=== PATIENT | female | born 1990 | race American Indian/Alaskan Native ===

== ENCOUNTER 2018-07-13 15:28 | Emergency (ER) | payer SELFPAY ==
[2018-07-13 15:35] VITALS: BP 126/54
[2018-07-13 16:05] LABS: Basophils % (Auto) 0.3 % (0.0-1.8); Eosinophils # (Auto) 0.1 K/mm3 (0.0-0.4); Eosinophils % (Auto) 0.7 % (0.0-4.3); Hematocrit 32.8 % (30.3-42.9); Hemoglobin 10.7 gm/dl (10.1-14.3); Lymphocytes % (Auto) 24.3 % (13.4-35.0); Mean Corpuscular HGB Conc 33 % (30-34); Mean Corpuscular Volume 85 fl (79-97); Monocytes # (Auto) 0.8 K/mm3 (0.0-0.8); Platelet Count 219 K/mm3 (140-440); Red Blood Count 3.85 M/mm3 (3.65-5.03); Red Cell Distribution Width 15.1 % (13.2-15.2)
[2018-07-13 16:20] LABS: Bilirubin,Urine NEG (Negative); Blood,Urine NEG (Negative); Color,Urine Yellow (Yellow); Mucus,Urine 2+ /HPF; Protein,Urine <15 mg/dL mg/dL (Negative)
[2018-07-13 16:28] LABS: Alanine Aminotransferase 7 units/L (7-56); Albumin 4.1 g/dL (3.9-5); BUN/Creatinine Ratio 27; Blood Urea Nitrogen 8 mg/dL (7-17); Calcium 9.1 mg/dL (8.4-10.2); Hemolysis Index 11
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
--- NOTE | 2018-07-13 18:18 | Ultrasound Report ---
FINAL REPORT EXAM: US OB TRANSVAGINAL HISTORY: pelvic pain/vaginal bleeding TECHNIQUE: Ultrasound obstetrical transvaginal PRIORS: None. FINDINGS: There is a gestational sac within the uterus There is a single live intrauterine gestation. cardiac activity present with heart rate of 168 beats per minute. Cervical length is within normal limits 4.2 centimeters biometric measurements were obtained Placenta is posterior. There is question of circumvallate placenta for which continued followup recom mended Biparietal diameter 17 weeks 5 days Head circumference 17 weeks 2 days Abdominal circumference 17 weeks 4 days Femur length 18 weeks 0 days Estimated weight today is 207 grams. Estimated age today is 17 weeks 5 days with estimate d date of delivery December 16, 2018 IMPRESSION: Single live intrauterine gestation estimated at 17 weeks 5 days Possible circumvallate placenta. Continued followup recommended
--- NOTE | 2018-07-13 18:20 | Ultrasound Report ---
FINAL REPORT EXAM: US OB >= 14 WEEKS FETUS HISTORY: pelvic pain/vaginal bleeding TECHNIQUE: Ultrasound obstetrical transabdominal PRIORS: None. FINDINGS: There is a gestational sac within the uterus There is a single live intrauterine gestation. cardiac activity present with heart rate of 168 beats per minute. Cervical length is within normal limits 4.2 centimeters biometric measurements were obtained Placenta is posterior. There is question of circumvallate placenta for which continued followup recom mended Biparietal diameter 17 weeks 5 days Head circumference 17 weeks 2 days Abdominal circumference 17 weeks 4 days Femur length 18 weeks 0 days Estimated weight today is 207 grams. Estimated age today is 17 weeks 5 days with estimate d date of delivery December 16, 2018 IMPRESSION: Single live intrauterine gestation estimated at 17 weeks 5 days Possible circumvallate placenta. Continued followup recommended
== END 2018-07-13 18:48 | disposition home or self-care (01) ==
LOC: ED 15:28
DX: O20.0 Threatened abortion (principal); F17.200 Nicotine dependence, unspecified, uncomplicated; Z86.2 Personal history of diseases of the blood and blood-forming organs and certain disorders involving the immune mechanism; Z3A.17 17 weeks gestation of pregnancy
CPT/HCPCS: 36415; 76805; 76817; 80053; 81001; 84702; 85025; 86900; 86901

== ENCOUNTER 2018-11-23 21:59 | Outpatient (CLI) | payer MEDICAID, OTHER ==
[2018-11-24 01:02] VITALS: BP 118/55
[2018-11-24] MEDS ORDERED: VISTARIL PO ONE (01:20)
== END 2018-11-24 01:30 | disposition home or self-care (01) ==
LOC: TRG 21:59
PROVIDERS: ATTEND Obstetrics & Gynecology
DX: O26.893 Other specified pregnancy related conditions, third trimester (principal); R10.2 Pelvic and perineal pain; Z3A.36 36 weeks gestation of pregnancy
CPT/HCPCS: 59025; Q0177

== ENCOUNTER 2018-12-05 15:35 | Inpatient (IN) | payer MEDICAID ==
--- NOTE | 2018-12-05 19:26 | History and Physical Report ---
History of Present Illness Date of examination: 12/05/18 Date of admission: 12/05/18 18:25 Chief complaint: SROM light meconium fluid @ 1714 History of present illness: Pt is a 28yo BF EDC 12/21/18; EGA 37 5/7 weeks presents to L&D complaining of leaking fluid since 1714 followed by irregular contractions. She received late care at [facility] since 33 weeks and has been non- compliant with [facility]. records are available and GBS is Negative. Past History Past Medical History: no pertinent history Past Surgical History: no surgical history Social history: no significant social history, single - Obstetrical History Expected Date of Delivery: 12/21/18 Actual Gestation: 37 Week(s) 5 Day(s) : 6 Medications and Allergies Allergies Allergy/AdvReac Type Severity Reaction Status Date / Time latex Allergy Hives Verified 12/05/18 16:50 Home Medications Medication Instructions Recorded Confirmed Last Taken Type Acetaminophen 500 mg PO Q8H PRN #20 tablet 07/13/18 12/05/18 11/23/18 20:00 Rx 21/Iron Fu/Folic Acid 1 each PO DAILY #30 tablet 07/13/18 12/05/18 11/23/18 Rx [ Complete Caplet] Acetaminophen/Diphenhydramine 1 tab PO QPM PRN 11/24/18 12/05/18 11/23/18 20:00 History [Tylenol Pm Ex-Strength Caplet] Review of Systems All systems: negative - Vital Signs Vital signs: Vital Signs Pulse BP 115 H 120/64 12/05/18 15:55 12/05/18 15:55 Temp Pulse Resp BP Pulse Ox 99.3 F 91 H 18 121/69 12/05/18 16:54 12/05/18 18:42 12/05/18 16:54 12/05/18 18:42 - Physical Exam Breasts: Positive: deferred Cardiovascular: Regular rate Lungs: Positive: Clear to auscultation Abdomen: Positive: normal appearance, soft Vagina: Positive: normal moisture Uterus: Positive: enlarged Extremities: Positive: normal - Obstetrical FHR: category 1 Uterine Contraction Monitor Mode: External Cervical Dilatation: 1 (per nurse) Cervical Effacement Percentage: 50 (per nurse) station: -2 Uterine Contraction Pattern: Irregular Uterine Tone Measurement Phase: Contraction Uterine Contraction Intensity: Mild Results Result Diagrams: 12/05/18 19:00 All other labs normal. Assessment and Plan - Patient Problems (1) 37 weeks gestation of Onset Date: 12/05/18 Current Visit: Yes Status: Acute Plan to address problem: A: IUP @ 37 5/7 weeks PPROM Late care P: Admit to L&D for expectant vaginal delivery (2) premature rupture of membranes (PPROM) with onset of labor after 24 hours of rupture in third trimester, antepartum Onset Date: 12/05/18 Current Visit: Yes Status: Acute
[2018-12-05] MEDS ORDERED: BRETHINE IVP PRN (19:34)
[2018-12-05] MEDS ORDERED: SUBLIMAZE IV PRN (19:34)
[2018-12-05] MEDS ORDERED: BRETHINE SUB-Q PRN (19:34)
[2018-12-05] MEDS ORDERED: ZOFRAN IV PRN (19:34)
[2018-12-05] MEDS ORDERED: MINERAL OIL PO PRN (19:34)
[2018-12-05] MEDS ORDERED: XYLOCAINE 2% INFILTRATI ONE (19:34)
[2018-12-05 19:45] LABS: Hematocrit 25.1 % (30.3-42.9); Hemoglobin 8.1 gm/dl (10.1-14.3); Mean Corpuscular HGB Conc 32 % (30-34); Mean Corpuscular Volume 73 fl (79-97); Platelet Count 220 K/mm3 (140-440); Red Blood Count 3.43 M/mm3 (3.65-5.03); Red Cell Distribution Width 17.4 % (13.2-15.2)
[2018-12-05] MEDS ORDERED: PITOCin/NS 30 UNIT/500ML 30 UNITS/500 ML BAG IV SCH ×2 (20:00)
[2018-12-05] MEDS ORDERED: PITOCin/NS 20 UNIT/1000ML DRIP 20 UNITS/1,000 ML BAG IV SCH (20:00)
[2018-12-05] MEDS: STADOL IV PRN (23:23)
[2018-12-06] MEDS: STADOL IV PRN ×3 (02:03→17:45)
[2018-12-06] MEDS: LACTATED RINGERS 1,000 ML IV SCH (02:34)
[2018-12-06] MEDS ORDERED: CERVIDIL VG ONE (07:48)
--- NOTE | 2018-12-06 11:52 | Progress Note ---
Assessment and Plan - Patient Problems (1) 37 weeks gestation of Onset Date: 12/05/18 Current Visit: Yes Status: Acute Plan to address problem: A: IUP @ 37 6/7 weeks PPROM Late care P: Continue cervidil/pitocin augmentation of labor Expectant vaginal delivery (2) premature rupture of membranes (PPROM) with onset of labor after 24 hours of rupture in third trimester, antepartum Onset Date: 12/05/18 Current Visit: Yes Status: Acute Subjective - Subjective Date of service: 12/06/18 Principal diagnosis: IUP @ 37 6/7 weeks Interval history: Pt is a 28yo BF EDC 12/21/18; EGA 37 6/7 weeks who presented to L&D complaining of leaking fluid since 171412/05/18 followed by irregular contractions. She received late care at [facility] since 33 weeks and has been non-compliant with [facility]. records are available and GBS is Negative. She received pitocin yesterday without much cervical change, and so received cervidil today. +FM. No bleeding. Patient reports: movement normal, contractions, no new complaints, no loss of fluid, no vaginal bleeding Objective - Vital Signs Vital Signs: Vital Signs - 12hr 12/05/18 12/06/18 12/06/18 23:56 00:23 00:27 Temperature Pulse Rate 104 H 90 Respiratory 18 Rate Blood Pressure 124/61 121/56 Blood Pressure [Left] O2 Sat by Pulse Oximetry 12/06/18 12/06/18 12/06/18 00:58 01:27 01:32 Temperature Pulse Rate 91 H 92 H 98 H Respiratory Rate Blood Pressure 117/57 Blood Pressure [Left] O2 Sat by Pulse 97 97 Oximetry 12/06/18 12/06/18 12/06/18 01:37 01:42 01:47 Temperature Pulse Rate 98 H 104 H 99 H Respiratory Rate Blood Pressure Blood Pressure [Left] O2 Sat by Pulse 97 97 97 Oximetry 12/06/18 12/06/18 12/06/18 01:52 01:57 02:02 Temperature Pulse Rate 105 H 107 H 99 H Respiratory Rate Blood Pressure 116/54 Blood Pressure [Left] O2 Sat by Pulse 97 99 98 Oximetry 12/06/18 12/06/18 12/06/18 02:03 02:07 02:12 Temperature Pulse Rate 94 H 105 H Respiratory 18 Rate Blood Pressure Blood Pressure [Left] O2 Sat by Pulse 99 98 Oximetry 12/06/18 12/06/18 12/06/18 02:17 02:22 02:27 Temperature Pulse Rate 105 H 96 H 99 H Respiratory Rate Blood Pressure Blood Pressure [Left] O2 Sat by Pulse 99 99 98 Oximetry 12/06/18 12/06/18 12/06/18 02:28 02:32 02:34 Temperature Pulse Rate 100 H 102 H Respiratory 19 Rate Blood Pressure 115/57 Blood Pressure [Left] O2 Sat by Pulse 98 Oximetry 12/06/18 12/06/18 12/06/18 02:37 02:42 02:57 Temperature Pulse Rate 104 H 107 H 98 H Respiratory Rate Blood Pressure 107/52 Blood Pressure [Left] O2 Sat by Pulse 99 99 Oximetry 12/06/18 12/06/18 12/06/18 03:27 03:53 03:58 Temperature Pulse Rate 86 89 94 H Respiratory Rate Blood Pressure 117/59 114/57 Blood Pressure [Left] O2 Sat by Pulse 98 97 Oximetry 12/06/18 12/06/18 12/06/18 04:03 04:08 04:13 Temperature Pulse Rate 93 H 95 H 91 H Respiratory Rate Blood Pressure Blood Pressure [Left] O2 Sat by Pulse 97 98 98 Oximetry 12/06/18 12/06/18 12/06/18 04:27 04:57 05:28 Temperature Pulse Rate 90 87 83 Respiratory Rate Blood Pressure 119/57 126/65 122/95 Blood Pressure [Left] O2 Sat by Pulse Oximetry 12/06/18 12/06/18 12/06/18 05:43 05:48 05:53 Temperature 97.9 F Pulse Rate 76 83 84 Respiratory 18 Rate Blood Pressure Blood Pressure 122/95 [Left] O2 Sat by Pulse 100 99 100 Oximetry 12/06/18 12/06/18 12/06/18 05:57 05:58 06:03 Temperature Pulse Rate 77 79 89 Respiratory Rate Blood Pressure 118/58 Blood Pressure [Left] O2 Sat by Pulse 100 100 Oximetry 12/06/18 12/06/18 12/06/18 06:08 06:27 06:36 Temperature Pulse Rate 82 78 91 H Respiratory Rate Blood Pressure 125/59 Blood Pressure [Left] O2 Sat by Pulse 100 99 Oximetry 12/06/18 12/06/18 12/06/18 06:57 07:09 07:15 Temperature 98.1 F Pulse Rate 72 77 Respiratory 18 Rate Blood Pressure 115/59 117/62 Blood Pressure [Left] O2 Sat by Pulse Oximetry 12/06/18 12/06/18 12/06/18 07:27 10:21 11:21 Temperature Pulse Rate 81 96 H 90 Respiratory Rate Blood Pressure 118/58 116/58 104/54 Blood Pressure [Left] O2 Sat by Pulse Oximetry - Exam Abdomen: Present: normal appearance, soft Uterus: Present: normal FHR: category 1 Uterine Contraction Monitor Mode: External Uterine Contraction Pattern: Irregular Uterine Contraction Intensity: Mild - Labs Labs: Abnormal Labs 12/05/18 19:00 WBC 11.8 H RBC 3.43 L Hgb 8.1 L Hct 25.1 L MCV 73 L MCH 24 L RDW 17.4 H Laboratory Results - last 24 hr 12/05/18 12/05/18 19:00 19:00 WBC 11.8 H RBC 3.43 L Hgb 8.1 L Hct 25.1 L MCV 73 L MCH 24 L MCHC 32 RDW 17.4 H Plt Count 220 Blood Type O POSITIVE Antibody Screen TNR HETAL Antibody Screen Negative
[2018-12-06] MEDS ORDERED: NARCAN 2 MG/2 ML IV PRN (20:42)
--- NOTE | 2018-12-06 20:45 | Anesthesia Consultation ---
Anesthesia Consult and Med Hx Date of service: 12/06/18 - Airway Anesthetic Teeth Evaluation: Good ROM Head & Neck: Adequate Mental/Hyoid Distance: Adequate Mallampati Class: Class II Intubation Access Assessment: Probably Good - Pulmonary Exam CTA: Yes - Cardiac Exam Cardiac Exam: RRR - Pre-Operative Health Status ASA Pre-Surgery Classification: ASA2 Proposed Anesthetic Plan: Epidural - Pulmonary Hx Smoking: No Hx Asthma: No Hx Respiratory Symptoms: No SOB: No COPD: No Home Oxygen Therapy: No Hx Pneumonia: No Hx Sleep Apnea: No - Cardiovascular System Hx Hypertension: No Hx Coronary Artery Disease: No Hx Heart Attack/AMI: No Hx Angina: No Hx Percutaneous Transluminal Coronary Angioplasty (PTCA): No Hx Cardia Arrhythmia: No Hx Pacemaker: No Hx Internal Defibrillator: No Hx Valvular Heart Disease: No Hx Heart Murmur: No Hx Peripheral Vascular Disease: No - Central Nervous System Hx Neuromuscular Disorder: No Hx Seizures: No CVA: No Hx Back Pain: No Hx Psychiatric Problems: No - Gastrointestinal Hx Ulcer: No Hx Gastroesophageal Reflux Disease: Yes - Endocrine Hx Renal Disease: No Hx End Stage Renal Disease: No Hx Cirrhosis: No Hx Liver Disease: No Hx Insulin Dependent Diabetes: No Hx Non-Insulin Dependent Diabetes: No Hx Thyroid Disease: No Hx Hypothyroidism: No Hx Hyperthyroidism: No - Hematic Hx Anemia: Yes (not taking Iron as prescribed) Hx Sickle Cell Disease: No - Other Systems Hx Alcohol Use: No Hx Substance Use: No Hx Cancer: No Hx Obesity: No
[2018-12-06] MEDS ORDERED: fentaNYL-BUPIV 2 MCG/ML-0.125% 200 MCG/100 ML BAG EPIDURAL SCH (21:00)
[2018-12-06] MEDS ORDERED: MARCAINE 0.25% INFILTRATI ONE (23:55)
[2018-12-07] MEDS ORDERED: BENADRYL IV PRN (00:53)
[2018-12-07] MEDS ORDERED: VISTARIL PO PRN (04:20)
[2018-12-07] MEDS ORDERED: VISTARIL PO ONE (04:40)
[2018-12-07] MEDS ORDERED: NACL 0.9% INFILTRATI SCH (04:45)
[2018-12-07] MEDS ORDERED: MARCAINE 0.5% INFILTRATI SCH (04:45)
[2018-12-07] MEDS ORDERED: MARCAINE 0.25% INFILTRATI ONE ×3 (05:09→10:03)
[2018-12-07] MEDS: LACTATED RINGERS 1,000 ML IV SCH (08:50)
[2018-12-07] MEDS ORDERED: PERIACTIN PO SCH (10:00)
--- NOTE | 2018-12-07 10:44 | Procedure Note ---
OB Delivery Note - Delivery Date of Delivery: 12/07/18 Surgeon: HARMEET ARCHIBALD Estimated blood loss: 200cc - Vaginal Delivery presentation: vertex Delivery position: OA Intrapartum events: PROM->1hr before delivery, prolonged labor- > = 20hr Delivery induction: cervidil Delivery augmentation: pitocin Delivery monitor: external FHT, external uterine Route of delivery: Delivery placenta: spontaneous Delivery cord: 3 umbilical vessels Episiotomy: none Delivery laceration: none Anesthesia: epidural Delivery comments: Infant delivered OA and placed on Mom's chest for [id number] bonding and delayed cord clamping, cut by Grandma - A at 1 minute: 8 at 5 minutes: 9 Infant Gender: Male ([id number])
[2018-12-07] MEDS ORDERED: LANSINOH TP PRN (10:48)
[2018-12-07] MEDS ORDERED: BENADRYL PO PRN (10:48)
[2018-12-07] MEDS ORDERED: ZOFRAN IV PRN (10:48)
[2018-12-07] MEDS ORDERED: DULCOLAX PR PRN (10:48)
[2018-12-07] MEDS ORDERED: MILK OF MAGNESIA PO PRN (10:48)
[2018-12-07] MEDS ORDERED: TUCKS PAD TP PRN (10:48)
[2018-12-07] MEDS ORDERED: PHENERGAN PR PRN (10:48)
[2018-12-07] MEDS ORDERED: TYLENOL PO PRN (10:48)
[2018-12-07] MEDS ORDERED: PHENERGAN PO PRN (10:48)
[2018-12-07] MEDS ORDERED: PITOCin/NS 20 UNIT/1000ML DRIP 20 UNITS/1,000 ML BAG IV SCH (11:00)
[2018-12-07] MEDS ORDERED: SODIUM CHLORIDE FLUSH SYRINGE 10 ML IV NR (11:00)
[2018-12-07] MEDS: IBUPROFEN PO SCH ×3 (12:20→23:49)
[2018-12-07] MEDS: NORCO 5/325 PO PRN (14:54)
[2018-12-07 22:58] LABS: Hematocrit 23.3 % (30.3-42.9); Hemoglobin 7.5 gm/dl (10.1-14.3)
[2018-12-07] MEDS: FEOSOL PO SCH (23:50)
[2018-12-07] MEDS: COLACE PO SCH (23:50)
[2018-12-08] MEDS: IBUPROFEN PO SCH ×4 (05:29→22:49)
[2018-12-08] MEDS ORDERED: M-M-R II VACCINE SUB-Q ONE (06:00)
[2018-12-08] MEDS ORDERED: BOOSTRIX IM ONE (06:00)
[2018-12-08] MEDS: COLACE PO SCH ×2 (10:14→22:49)
[2018-12-08] MEDS: FEOSOL PO SCH ×2 (10:14→22:48)
[2018-12-08] MEDS: PRENATAL VITAMIN PO SCH (10:15)
[2018-12-08] MEDS: NORCO 5/325 PO PRN ×2 (12:32→22:49)
--- NOTE | 2018-12-08 15:00 | Progress Note ---
Assessment and Plan - Patient Problems (1) 37 weeks gestation of Onset Date: 12/05/18 Current Visit: Yes Status: Resolved (2) premature rupture of membranes (PPROM) with onset of labor after 24 hours of rupture in third trimester, antepartum Onset Date: 12/05/18 Current Visit: Yes Status: Resolved (3) (normal spontaneous vaginal delivery) Onset Date: 12/08/18 Current Visit: Yes Status: Resolved Plan to address problem: A: S/P - PPD #1 Asymptomatic anemia - stable P: May go home tomorrow. Subjective - Subjective Date of service: 12/08/18 Principal diagnosis: s/p - PPD #1 Interval history: Pt is feeling well without complaints. Bleeding improved. Patient reports: appetite normal, voiding normally, pain well controlled, flatus, ambulating normally, no dizzy ambulation, no nauseated : doing well, nursing well Objective - Vital Signs Latest vital signs: Vital Signs Temp Pulse Resp BP BP Pulse Ox 12/08/18 07:58 98.1 F 78 18 120/56 97 12/08/18 02:00 98.1 F 72 20 114/68 98 12/07/18 21:43 98.2 F 76 20 117/62 95 12/07/18 18:13 20 12/07/18 16:41 98.2 F 84 18 105/44 96 Intake and Output 12/08/18 12/08/18 12/08/18 06:59 14:59 22:59 Intake Total 240 Balance 240 Intake: Oral 240 Other: Total, Intake Amount 240 # Voids Void 1 1 - Exam Abdomen: Present: normal appearance, soft Uterus: Present: normal, firm, fundal height below umbilicus Extremities: Present: normal - Labs Labs: Abnormal lab results 12/07/18 Range/Units 22:47 Hgb 7.5 L (10.1-14.3) gm/dl Hct 23.3 L (30.3-42.9) % Laboratory Tests 12/05/18 12/05/18 12/05/18 19:00 19:00 19:00 WBC 11.8 H RBC 3.43 L Hgb 8.1 L Hct 25.1 L MCV 73 L MCH 24 L MCHC 32 RDW 17.4 H Plt Count 220 RPR Nonreactive Blood Type O POSITIVE Antibody Screen TNR HETAL Antibody Screen Negative 12/07/18 22:47 WBC RBC Hgb 7.5 L Hct 23.3 L MCV MCH MCHC RDW Plt Count RPR Blood Type Antibody Screen HETAL Antibody Screen
[2018-12-09] MEDS: IBUPROFEN PO SCH (05:31)
--- NOTE | 2018-12-09 10:28 | Discharge Summary ---
Providers - Providers Date of Admission: 12/05/18 18:25 Date of discharge: 12/09/18 Attending physician: HARMETE ARCHIBALD Primary care physician: HARMEET ARCHIBALD Hospitalization Reason for admission: active labor, rupture of membranes, IUP at term Delivery: Episiotomy: none Laceration: none Other procedures: none complications: none Discharge diagnosis: IUP at term delivered [place] baby: male Hospital course: Unremarkable. Condition at discharge: Good Disposition: DC-01 TO HOME OR SELFCARE - Discharge Diagnoses (1) 37 weeks gestation of Status: Resolved (2) premature rupture of membranes (PPROM) with onset of labor after 24 hours of rupture in third trimester, antepartum Status: Resolved (3) (normal spontaneous vaginal delivery) Status: Resolved Plan - Discharge Medications Prescriptions: Ferrous Sulfate [Feosol 325 MG tab] 325 mg PO BID #60 tablet Ibuprofen [Motrin 600 MG tab] 600 mg PO Q6H #30 tablet Vit-Fe Fumar-FA [ Vitamin] 1 each PO QDAY #30 tablet - Provider Discharge Summary Activity: routine, no sex for 6 weeks, no heavy lifting 4 weeks, no strenuous exercise Diet: routine Instructions: routine Additional instructions: [] Smoking cessation referral if applicable(refer to patient education folder for contact #) [] Refer to [facility]'s [facility] Center Booklet Call your doctor immediately for: * Fever > 100.5 * Heavy vaginal bleeding ( >1 pad per hour) * Severe persistent headache * Shortness of breath * Reddened, hot, painful area to leg or breast * Drainage or odor from incision. * Keep incision clean and dry at all times and follow doctor's instructions regarding bathing/showering - Follow up plan Follow up: HARMEET ARCHIBALD MD [Primary Care Provider] - 6 Weeks
[2018-12-09] MEDS: FEOSOL PO SCH (10:52)
[2018-12-09] MEDS: COLACE PO SCH (10:52)
[2018-12-09] MEDS: PRENATAL VITAMIN PO SCH (10:52)
[2018-12-09 12:33] VITALS: BP 113/60
== END 2018-12-09 13:00 | disposition home or self-care (01) | DRG 775 ==
LOC: TRG 15:35 → LD 18:25 → OB 12-07 13:23
PROVIDERS: ADMIT Obstetrics & Gynecology; ATTEND Obstetrics & Gynecology
PROC: 10E0XZZ Delivery of Products of Conception, External Approach (ICD-10-PCS; principal; 2018-12-07)
PROC: 3E0P7VZ Introduction of Hormone into Female Reproductive, Via Natural or Artificial Opening (ICD-10-PCS; 2018-12-07)
PROC: 3E0R3BZ Introduction of Anesthetic Agent into Spinal Canal, Percutaneous Approach (ICD-10-PCS; 2018-12-07)
PROC: 00HU33Z Insertion of Infusion Device into Spinal Canal, Percutaneous Approach (ICD-10-PCS; 2018-12-07)
DX: O60.14X0 Preterm labor third trimester with preterm delivery third trimester, not applicable or unspecified (principal); O42.013 Preterm premature rupture of membranes, onset of labor within 24 hours of rupture, third trimester; O99.62 Diseases of the digestive system complicating childbirth; O63.9 Long labor, unspecified; Z3A.37 37 weeks gestation of pregnancy; Z37.0 Single live birth; O90.81 Anemia of the puerperium; D64.9 Anemia, unspecified
CPT/HCPCS: 36415; 59025; 59200; 85014; 85018; 85027; 86592; 86850; 86900; 86901; G0378; J0595; J1200; J2590; J3010; J7120; Q0177

== ENCOUNTER 2018-12-21 15:32 | Emergency (ER) | payer MEDICAID ==
--- NOTE | 2018-12-21 16:22 | Emergency Department Report ---
Blank Doc - Documentation Documentation: This is a 28-year-old female that presents with right swelling vaginal area. This initial assessment/diagnostic orders/clinical plan/treatment(s) is/are subject to change based on patient's health status, clinical progression and re- assessment by fellow clinical providers in the ED. Further treatment and workup at subsequent clinical providers discretion. Patient/guardians urged not to elope from the ED as their condition may be serious if not clinically assessed and managed. Initial orders include: 1- Patient sent to [facility] for further evaluation and treatment
[2018-12-21 18:26] LABS: Bilirubin,Urine NEG (Negative); Blood,Urine MOD (Negative); Color,Urine Yellow (Yellow); Mucus,Urine 3+ /HPF
[2018-12-21 18:28] LABS: WBC,Urine > 182.0 /HPF (0.0-6.0)
[2018-12-21] MEDS ORDERED: NACL 0.9% 1000 ML 1,000 ML IV ONE (19:38)
[2018-12-21] MEDS ORDERED: TYLENOL PO ONE (19:38)
[2018-12-21] MEDS ORDERED: ZOFRAN IV ONE (19:38)
[2018-12-21] MEDS ORDERED: ROCEPHIN/NS 1 GM/50 ML 1 GM/50 ML BAG IV ONE (19:38)
[2018-12-21 20:38] VITALS: BP 114/76
[2018-12-21 20:49] LABS: Basophils % (Auto) 0.3 % (0.0-1.8); Eosinophils # (Auto) 0.1 K/mm3 (0.0-0.4); Eosinophils % (Auto) 0.9 % (0.0-4.3); Hematocrit 31.9 % (30.3-42.9); Hemoglobin 10.1 gm/dl (10.1-14.3); Lymphocytes # (Auto) 2.1 K/mm3 (1.2-5.4); Lymphocytes % (Auto) 26.7 % (13.4-35.0); Mean Corpuscular HGB Conc 32 % (30-34); Mean Corpuscular Volume 72 fl (79-97); Monocytes # (Auto) 0.5 K/mm3 (0.0-0.8); Monocytes % (Auto) 6.6 % (0.0-7.3); Platelet Count 329 K/mm3 (140-440); Red Blood Count 4.41 M/mm3 (3.65-5.03); Red Cell Distribution Width 19.7 % (13.2-15.2)
[2018-12-21] MEDS ORDERED: ZITHROMAX PO ONE (21:01)
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
[2018-12-21 21:12] LABS: Alanine Aminotransferase 10 units/L (7-56)
--- NOTE | 2018-12-21 21:24 | Ultrasound Report ---
PROCEDURE: US ABDOMEN COMPLETE TECHNIQUE: Real-time sonography in multiple planes of the abdomen was performed with image documenta tion. HISTORY: Abdominal pain COMPARISONS: None . FINDINGS: Liver: Normal size and echotexture with no evidence of cystic or solid mass lesions. Gallbladder: Fluid filled. No gallstones, wall thickening, pericholecystic fluid, or sonographic Mur phy's sign. Intrahepatic bile ducts: Normal caliber . Extrahepatic bile ducts: Common bile duct measures 3 mm in caliber. Pancreas: Not fully visualized. Aorta: Visualized portions appear normal. IVC: Visualized portions appear normal. RIGHT kidney: Normal echotexture. No focal renal mass, calculus, or hydronephrosis. Length: 15.2 c m. LEFT kidney: Normal echotexture. No focal renal mass, calculus, or hydronephrosis. Length: 12.6 cm . Spleen: Normal size and echotexture. No focal lesions. Spleen measures 11.7 cm in length Intraperitoneal fluid: None . Other: None . IMPRESSION: No sonographic evidence of cholelithiasis or cholecystitis. This document is electronically signed by Evelyn Turner MD., December 21 2018 09:21:54 PM ET
--- NOTE | 2018-12-21 21:29 | Ultrasound Report ---
PROCEDURE: US PELVIC COMPLETE TECHNIQUE: Real-time transabdominal sonography in multiple planes of pelvis was performed with image documentation. HISTORY: pelvic pain COMPARISONS: None . FINDINGS: UTERUS Size: 12.2 x 6.2 x 7.0 cm. Endometrial thickness: 7 mm. Small amount of endometrial fluid is present Orientation: anteverted. Cervix: Normal. Fibroids/masses: None. Just superior to the endometrial cavity there is an 8 mm linear echogenic focus. RIGHT Ovary: 2.8 x 1.5 x 2.6 cm. Appearance: Normal. LEFT Ovary: Not able to be visualized Pelvic fluid: None. Other: None. IMPRESSION: Small amount of endometrial fluid is present.Just superior to the endometrial cavity the re is a linear echogenic focus, possibly related to a calcification or air. If there has been prior i nstrumentation, cannot exclude a foreign body. Consider further evaluation with CT This document is electronically signed by Evelyn Turner MD., December 21 2018 09:26:47 PM ET
[2018-12-21 21:34] LABS: BUN/Creatinine Ratio 24; Blood Urea Nitrogen 12 mg/dL (7-17); Calcium 8.8 mg/dL (8.4-10.2); Hemolysis Index 0
== END 2018-12-21 22:53 | disposition home or self-care (01) ==
LOC: ED 15:32
DX: N73.9 Female pelvic inflammatory disease, unspecified (principal); N76.0 Acute vaginitis; N39.0 Urinary tract infection, site not specified
CPT/HCPCS: 36415; 76700; 76856; 80053; 81001; 82140; 85025; 87040; 87086; 87210; 87591; 96365; 99285; J0696; J2405; J7030

== ENCOUNTER 2019-01-12 07:23 | Day surgery (SDC) | payer MEDICAID ==
[2019-01-12] MEDS ORDERED: SUBLIMAZE ONE (08:02)
[2019-01-12] MEDS ORDERED: DECADRON ONE (08:02)
[2019-01-12] MEDS ORDERED: ZOFRAN ONE (08:02)
[2019-01-12] MEDS ORDERED: DIPRIVAN 10 MG/ML IV ONE ×2 (08:03→09:34)
[2019-01-12] MEDS ORDERED: DILAUDID ONE (08:13)
--- NOTE | 2019-01-12 08:27 | Short Stay Summary ---
Short Stay Documentation Date of service: 01/12/19 Narrative H&P: Pt is a 28yo BF s/p 12/07/18 presents for permanent sterilization - History Principal diagnosis: Desires permanent sterilization H&P: obtained from office Past Medical History: No medical history Past Surgical History: No surgical history Social history: no significant social history, single - Allergies and Medications Current Medications: Allergies fentanyl Allergy (Verified 01/06/19 13:58) Itching latex Allergy (Verified 01/06/19 13:58) Hives Home Medications Medication Instructions Recorded Confirmed Last Taken Type 21/Iron Fu/Folic Acid 1 each PO DAILY #30 tablet 07/13/18 01/06/19 11/23/18 Rx [ Complete Caplet] Clindamycin [Clindamycin CAP] 300 mg PO Q8H #30 cap 12/21/18 01/06/19 Unknown Rx Active Medications Lactated Ringer's (Lactated Ringers) 1,000 mls @ 125 mls/hr IV DIRECT JUSTIN Cefazolin Sodium (Ancef/Sterile Water 2 Gm/20 Ml) 2 gm in 20 mls @ 80 mls/hr IV PREOP NR; Protocol - Physical exam General appearance: no acute distress Integumentary: no rash HEENT: Atraumatic Lungs: Clear to auscultation Breasts: deferred Heart: Regular rate Gastrointestinal: normal Female Genitourinary: deferred Rectal Exam: deferred Extremities: no ischemia, No edema Neurological: Normal gait, Normal speech - Brief post op/procedure progress note Date of procedure: 01/12/19 Pre-op diagnosis: Desires permanent sterilization Post-op diagnosis: same Procedure: Laparoscopic bilateral tubal ligation Anesthesia: GETA Findings: Normal uterus. Normal tubes and ovaries bilaterally Surgeon: HARMEET ARCHIBALD Estimated blood loss: minimal Pathology: none Specimen disposition: discarded Condition: stable - Hospital course Hospital course: Unremarkable. - Disposition Condition at discharge: Good Disposition: DC-01 TO HOME OR SELFCARE - Discharge Diagnoses (1) Encounter for sterilization Status: Resolved Short Stay Discharge Plan Activity: no restrictions Diet: regular Wound: open to air, keep clean and dry Follow up with: MARTY ACOSTA MD [Primary Care Provider] - 7 Days HARMEET ARCHIBALD MD [Staff Physician] - 14 Days Prescriptions: HYDROcodone/APAP 5-325 [[place] 5/325] 1 each PO Q6HR PRN #20 tablet PRN Reason: Pain
[2019-01-12] MEDS ORDERED: ZEMURON IV ONE (08:30)
[2019-01-12] MEDS ORDERED: MARCAINE 0.5% INFILTRATI ONE ×2 (08:44→09:37)
--- NOTE | 2019-01-12 08:54 | Anesthesia Day of Surgery ---
Anesthesia Day of Surgery - Day of Surgery Patient Examined: Yes Patient H&P Reviewed: Yes Patient is NPO: Yes
--- NOTE | 2019-01-12 08:55 | Anesthesia Consultation ---
Anesthesia Consult and Med Hx Date of service: 01/12/19 - Airway Anesthetic Teeth Evaluation: Good ROM Head & Neck: Adequate Mental/Hyoid Distance: Adequate Mallampati Class: Class I Intubation Access Assessment: Good - Pulmonary Exam CTA: Yes - Cardiac Exam Cardiac Exam: RRR - Pre-Operative Health Status ASA Pre-Surgery Classification: ASA2 Proposed Anesthetic Plan: General - Pulmonary Hx Smoking: Yes Hx Asthma: No Hx Respiratory Symptoms: No SOB: No COPD: No Hx Pneumonia: No Hx Sleep Apnea: No - Cardiovascular System Hx Hypertension: No Hx Coronary Artery Disease: No Hx Heart Attack/AMI: No Hx Angina: No Hx Percutaneous Transluminal Coronary Angioplasty (PTCA): No Hx Cardia Arrhythmia: No Hx Pacemaker: No Hx Internal Defibrillator: No Hx Valvular Heart Disease: No Hx Heart Murmur: No Hx Peripheral Vascular Disease: No - Central Nervous System Hx Neuromuscular Disorder: No Hx Seizures: No CVA: No Hx Back Pain: No Hx Psychiatric Problems: No - Gastrointestinal Hx Ulcer: No Hx Gastroesophageal Reflux Disease: Yes - Endocrine Hx Renal Disease: No Hx End Stage Renal Disease: No Hx Cirrhosis: No Hx Liver Disease: No Hx Insulin Dependent Diabetes: No Hx Non-Insulin Dependent Diabetes: No Hx Thyroid Disease: No Hx Hypothyroidism: No Hx Hyperthyroidism: No - Hematic Hx Anemia: Yes Hx Sickle Cell Disease: No - Other Systems Hx Alcohol Use: No Hx Substance Use: No Hx Cancer: No Hx Obesity: No
[2019-01-12] MEDS ORDERED: LACTATED RINGERS 1,000 ML IV SCH (09:00)
[2019-01-12] MEDS ORDERED: ANCEF/STERILE WATER 2 GM/20 ML 2 GM/20 ML SYRINGE IV NR (09:00)
[2019-01-12] MEDS ORDERED: NACL 0.9% IR ONE (09:38)
[2019-01-12] MEDS ORDERED: XYLOCAINE MPF 2% ONE (09:55)
[2019-01-12] MEDS ORDERED: ROBINUL ONE (09:55)
[2019-01-12] MEDS ORDERED: TORADOL ONE (09:55)
[2019-01-12] MEDS ORDERED: BLOXIVERZ ONE (09:55)
[2019-01-12] MEDS ORDERED: DILAUDID IV PRN (10:01)
[2019-01-12] MEDS ORDERED: ZOFRAN IV PRN (10:01)
--- NOTE | 2019-01-12 10:01 | Operative Report ---
Operative Report Operative Report: PREOPERATIVE DIAGNOSIS: Desires permanent sterilization POSTOPERATIVE DIAGNOSIS: Same OPERATIVE PROCEDURE: Laparoscopic bilateral tubal ligation. SURGEON: Igor Elizondo MD ANESTHESIA: Gen. endotracheal intubation ANESTHESIOLOGIST: Dr. Summers ESTIMATED BLOOD LOSS: 10 mL FINDINGS: Normal uterus with normal tubes and ovaries bilaterally COMPLICATIONS: None COUNTS: Correct x3. PROCEDURE: After the patient was correctly identified and after general anesthesia was administered, the patient was prepped and draped in usual sterile fashion and placed in dorsal lithotomy position. First, the bladder was emptied using a straight catheter. Next, a speculum was placed in the vaginal vault and the anterior lip of the cervix was grasped using a single-tooth tenaculum. The uterine manipulator was then placed and the tenaculum and speculum were removed. Attention was then turned to the abdomen where first a periumbilical incision was made using a skin knife, and the Optiview trocar was inserted under direct visualization. After an adequate amount of abdominal insufflation, visualizatio n of the pelvic organs found the uterus to be normal, and the tubes and ovaries to be normal bilaterally. Next, the left fallopian tube was grasped using the Kleppingers, and after identifying the fimbriated end of the left tube, this tube was cauterized in 3 continuous [address] along the proximal portion of the left tube. The same procedure was performed on the right fallopian tube after first identifying the fimbriated end of the right tube. This tube was also cauterized in 3 continuous places along the proximal portion of the right tube. At this point, the procedure was then considered complete. All instruments were removed from the abdomen. The abdomen was deflated and the periumbilical incision was closed using 0 Vicryl suture in a [id number] configuration on the fascia, followed by 4-0 Monocryl suture in sub-cuticular fashion on the skin. The incision was also infiltrated using 0.5% Marcaine solution. The uterine manipulator was removed. The patient tolerated the procedure well and was transferred to recovery room stable condition.
[2019-01-12] MEDS ORDERED: VERSED IV PRN (10:02)
[2019-01-12] MEDS ORDERED: NORCO 5/325 PO PRN (10:06)
[2019-01-12 11:45] VITALS: BP 121/67
--- NOTE | 2019-01-12 17:05 | Post Anesthesia Evaluation ---
- Post Anesthesia Evaluation Patient Participated: Yes Airway Patent: Yes Stable Respiratory Function: Yes Nausea/Vomiting: No Temp > 96.8F: Yes Pain Manageable: Yes Adequeate Hydration: Yes Anesthesia Complications: No
== END 2019-01-12 11:40 | disposition home or self-care (01) ==
LOC: OR 07:23
PROVIDERS: ATTEND Obstetrics & Gynecology
DX: Z30.2 Encounter for sterilization (principal); F17.210 Nicotine dependence, cigarettes, uncomplicated; K21.9 Gastro-esophageal reflux disease without esophagitis; G43.909 Migraine, unspecified, not intractable, without status migrainosus; Z87.440 Personal history of urinary (tract) infections; Z79.899 Other long term (current) drug therapy; Z91.013 Allergy to seafood; Z83.3 Family history of diabetes mellitus; Z86.2 Personal history of diseases of the blood and blood-forming organs and certain disorders involving the immune mechanism; Z88.8 Allergy status to other drugs, medicaments and biological substances; Z82.49 Family history of ischemic heart disease and other diseases of the circulatory system
CPT/HCPCS: 58670; 81025; J0690; J1100; J1170; J1885; J2405; J2704; J2710; J7120; J3010

== ENCOUNTER 2022-02-02 18:47 | Emergency (ER) | payer BC ==
[2022-02-02 20:16] VITALS: BP 112/52
[2022-02-02] MEDS ORDERED: oxyCODONE /ACETAMINOPHEN 5-325MG TAB PO ONE (23:34)
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
[2022-02-03] MEDS ORDERED: KETOROLAC 10 MG TAB PO ONE (01:35)
== END 2022-02-03 02:25 | disposition home or self-care (01) ==
LOC: ED 18:47
DX: N75.1 Abscess of Bartholin's gland (principal); G43.909 Migraine, unspecified, not intractable, without status migrainosus; F17.200 Nicotine dependence, unspecified, uncomplicated; Z91.040 Latex allergy status; Z91.09 Other allergy status, other than to drugs and biological substances; Z79.899 Other long term (current) drug therapy
CPT/HCPCS: 99282; 99283